=== PATIENT | female | born 1990 | race Caucasian/White ===

== ENCOUNTER 2022-06-04 14:02 | Emergency (ER) | payer OTHER ==
[~2022-06-04] VITALS: Ht 162.6 cm; Wt 90.0 kg
[2022-06-04 14:31] VITALS: TEMP 98.8
[2022-06-04] MEDS ORDERED: CRUTCHES MC (15:48)
[2022-06-04 16:08] VITALS: BP 116/81; PULSE 92
== END 2022-06-04 16:08 | disposition home or self-care (01) ==
LOC: COL.ER 14:02
DX: S83.91XA Sprain of unspecified site of right knee, initial encounter (principal); W09.8XXA Fall on or from other playground equipment, initial encounter; Y93.44 Activity, trampolining
CPT/HCPCS: J1885; L1830; L1846